=== PATIENT | female | born 1985 | race American Indian/Alaskan Native ===

== ENCOUNTER → 2024-08-30 | Outpatient (CLI) | payer MEDICAID, SELFPAY ==
--- NOTE | 2024-08-30 11:30 | XR_ITS ---
Examination: Abdomen sonogram, complete Date and time of exam: August 30, 2024 1125 hours INDICATIONS: Diagnosis cirrhosis. Technique: Multiple real-time grayscale transabdominal sonographic images of the abdomen have been obtained. Findings: Absent gallbladder Common bile duct 0.8 cm no stones Pancreatic head 2.3 cm Aorta not enlarged. Liver 15.8 cm irregular contour fatty infiltration no focal liver lesions. Normal hepatopedal portal venous flow Patent IVC Right kidney 12.1 cm cortex 1.4 cm Left kidney 9.8 cm cortex 1.4 cm Mild scar formation involving both kidneys Spleen 11.9 cm IMPRESSION: No common bile Primary hepatocellular disease. Mild renal parenchymal scar formation
== END | disposition home or self-care (01) ==
LOC: CDIM 11:03
PROVIDERS: Referring Provider Internal Medicine Gastroenterology; Visit Provider Internal Medicine Gastroenterology
DX: K76.9 Liver disease, unspecified (principal); N28.89 Other specified disorders of kidney and ureter
CPT/HCPCS: 76700